=== PATIENT | female | born 1935 | race Caucasian/White ===

== ENCOUNTER 2021-01-27 13:41 | Inpatient (IN) | payer MEDICARE, OTHER ==
[~2021-01-27] VITALS: Ht 162.6 cm; Wt 83.8 kg
--- NOTE | ~2021-01-27 | EKG ---
[facility] [address] [place], [place] [address] Draft EKG completed, results pending confirmation PATIENT NAME: ANYISAMARIANI Electrocardiogram DATE OF : 39 PHYSICIAN: PRELIMINARY REPORT #: [id number] REPORT IS CONFIDENTIAL AND NOT TO BE RELEASED WITHOUT AUTHORIZATION
[~2021-01-27 13:41] MED LIST: ADULT LOW DOSE81 MG PO; K-TAB ER20 MEQ PO; LASIX40 MG PO; LEVOTHYROXINE112 MCG PO; LEVOTHYROXINE125 MCG PO; LIPITOR10 MG PO; LISINOPRIL10 MG PO; LOVENOX80 MG SUB-Q; MAGNESIUM250 M1 PO; METFORMIN HCL500 M3 PO; NIACIN500 MG PO; NORVASC5 MG PO; OMEGA 3 FISH O1 EACH PO; OSTERA TABLET1 EACH PO; POTASSIUM CHLO20 ME1 PO; PROZAC20 MG PO; SUPER B COMPLE1 EACH PO; TOPROL XL50 MG PO; VITAMIN D31000 UNI1 PO
[2021-01-27] MEDS ORDERED: METOPROLOL SUCC50 MG PO (13:58)
[2021-01-27] MEDS ORDERED: RISPERIDONE0.25 MG PO (13:58)
[2021-01-27] MEDS ORDERED: MEMANTINE HCL10 MG PO (16:41)
[2021-01-27] MEDS ORDERED: LEVOTHYROXINE100 MCG PO (16:41)
[2021-01-27] MEDS ORDERED: DONEPEZIL HCL10 MG PO (16:42)
[2021-01-27] MEDS ORDERED: FUROSEMIDE20 MG PO (16:56)
[2021-01-27] MEDS ORDERED: DICLOFENAC SOD100 G1 TOP (17:01)
--- NOTE | 2021-01-27 18:01 | NUR ---
THIS RN IN TO CHECK ON PT, PT SPO2 NOTED TO BE 85%. PT LAYING IN BED 2L O2 NC IN PLACE, PT AWAKE AND ALERT. PT TITRATED UP TO 4L O2 NC, SPO2 NOW AT 90-91%. PT STATED HE FELT COLD AT THIS TIME, TEMPERATURE ASSESSED AND WAS 100.8. VITALS TAKEN AND DR. SHORT NOTIFIED OF CHANGE IN PT'S OXYGEN REQUIREMENTS AND TEMPERATURE. PRN TYLENOL THEN ADMINISTERED. PT NOW RESTING IN BED, IVF INFUSING ORDERED, PT REPORTS NO FURTHER NEEDS AT THIS TIME, CALL LIGHT IN REACH, BED IN LOWEST POSITION, WILL CONTINUE PLAN OF CARE.
--- NOTE | 2021-01-27 18:12 | NUR ---
Medications reconciled using pharmacy records and Dr Emmanuel's current chart notes. Dr Emmanuel's chart notes lists citalopram 40mg as one of her current medications, but it doesn't appear that the prescription has been filled for several months
--- NOTE | 2021-01-27 19:28 | NUR ---
PT ARRIVED TO THE CCU AT 1855 VIA STRETCHER WITH HER BELONGINGS AND DAUGHTER. PT ON ROOM AIR, AND WAS AWAKE AND ALERT. PT BROUGHT DOWN BY BOW MAKER RAJIV. PT ABLE TO SLIDE FROM STRETCHER TO THE BED WITH SOME ASSISTANCE AND WAS REPOSITIONED UP ON THE BED. VITALS TAKEN AT THIS TIME, PT NOTED TO HAVE A HR IN THE 110-140'S. PT DENIES LIGHTHEADEDNESS OR DIZZYNESS AT THIS TIME. PT NOTED TO BE ORIENTED ONLY TO SELF AT THIS TIME. CBG ASSESSED BY JENS CRUZ, SCHEDULED INSULIN HELD PER SLIDING SCALE (SEE MAR). PT IV FLUSHES WELL, SCHEDULED LR NOW INFUSING AT ORDERED RATE (SEE MAR). PT HISTORY TAKEN AT THIS TIME, PT'S DAUGHTER IN ROOM AND HELPED ANSWER QUESTIONS. PT REPORTS NO FURTHER NEEDS AT THIS TIME WHEN ASKED. CALL LIGHT IN REACH, BED IN LOWEST POSITION, PT'S DAUGHTER IN ROOM, IVF INFUSING ORDERED, WILL CONTINUE PLAN OF CARE AND GIVE REPORT TO THE NIGHTSHIFT RN'S.
--- NOTE | 2021-01-27 19:35 | NUR ---
REPORT RECEIVED FROM ALTAGRACIA RN. IN TO CHECK ON PT. DAUGHTER SHIRLEY IS IN ROOM WITH THE PT AND IS GIVING INFO REGARDING PTS BASELINE/ALZHEIMERS AND NIGHTTIME BEHAVIOR. SHIRLEY PLANS TO GO HOME FOR THE NIGHT, QUESTIONS ANSWERED. ASSISTED PT UP TO BSC SHE SAID SHE NEEDED TO USE BATHROOM BUT DID NOT GO. BACK TO BED, STEADY ON FEET, HR UP TO 120'S WHILE UP AND PT BECAME SOB WITH THIS AMOUNT OF ACTIVITY, RECOVERS IN BED APPROX OVER 1 MINUTE. HR STILL 120. ASSESSMENT DONE. LUNGS CLEAR.DIM IN BASES. SPO2 96% ON ROOM AIR. PT ALERT ALTHOUGH SOMEWHAT CONFUSED REGARDING SITUATION. KNOWS SHE IS IN THE HOSPITAL BUT CONFUSED REGARDING IV TUBING, MONITOR CORDS ETC, COOPERATIVE WITH DIRECITONS. CONT TO MONITOR, BED ALARM ON AND CALL LIGHT INSTRUCTION DONE AND IS IN PTS HAND.
--- NOTE | 2021-01-27 22:00 | NUR ---
DR SHORT UPDATED ON HEARTRATE, NO URINE OUTPUT. BLADDER SCAN DONE SHOWS 20ML. 500ML LR BOLUS STARTED. EXTRA DOSE OF METOPROLOL 12.5MG GIVEN. 250MCG DIGOXIN GIVEN. PT HAS BEEN MORE RESTFUL AND NOT SETTING OFF BED ALARM MUCH.
--- NOTE | 2021-01-27 23:45 | NUR ---
PT SET OFF BED ALARM, WAS GETTING OUT OF BED, WHEN ASKED IF SHE WANTED TO TRY TO USE BATHROOM SHE SAID, "YES I COULD PEE". SAT ON BEDSIDE COMMODE, WAS ABLE TO VOID 100ML SURAJ URINE. ASSISTED BACK TO BED WITH BED ALARM IN PLACE. HR REMAINS 115-130'S.
--- NOTE | 2021-01-28 01:00 | NUR ---
DR SHORT UPDATED ON PT STATUS, ORDER GIVEN FOR ADDITIONAL 500ML LR BOLUS. PT AWAKE IN BED, DENIES NEEDS AT THIS TIME.
--- NOTE | 2021-01-28 02:10 | NUR ---
PT STILL AWAKE, FREQUENTLY PUSHING HER CALL LIGHT, SETTING OFF BED ALARM AND PULLING OFF CARDIAC LEADS. HR 120S AFIB. DENIES NEEDS WHEN ASKED. BED ALARM IN PLACE.
--- NOTE | 2021-01-28 03:20 | NUR ---
PT AWAKE IN BED, ASSESSMENT DONE. RESTING HR 120'S AFIB. BED ALARM ON.
--- NOTE | 2021-01-28 05:20 | NUR ---
BED ALARM ALERTED STAFF. PATIENT ASSISTED TO THE BSC. PATIENT WAS ABLE TO VOID. PATIENT WAS INCONTINENT OF URINE. ATTEND CHANGED. PATIENT IS BACK IN BED RESTING. PATIENT DENIES ANY NEEDS. CALL LIGHT AND BELONGINGS ARE WITHIN REACH. BED ALARM ON FOR SAFETY.
--- NOTE | 2021-01-28 06:30 | NUR ---
PT RESTING WITH EYES CLOSED, RESP EVEN AND UNLABORED, HR 110'S. BED ALARM ON.
--- NOTE | 2021-01-28 07:30 | NUR ---
REPORT RECIEVED. PATIENT ISN ASLEEP, NOT DISTRESS NOTED.
--- NOTE | 2021-01-28 08:00 | NUR ---
WOKE FOR ASSESSMENT. REFUSING BREAKFAST, C/O MILD ABD DISCOMFORT. STATES SHE FEELS VERY BLOATED. PATIENT IS VERY FRUSTRATED ABOUT BEING SO CONFUSED. EMOTIONAL SUPPORT GIVEN. DENEIS CHEST PAIN. SON IN ROOM. TALEKED WITH PATIENT ABOUT POC FOR DAY, PATIENT HAS ALZHEIMER'S AND IS VERY FORGETFUL.
--- NOTE | 2021-01-28 10:00 | NUR ---
PULLED OUT IV AND LEADS OFF. ASSISTED PATIENT TO COUCH SHE REMAINS VERY CONFUSED TO SITUATION. TRANSFERRED TO CHAIR. HR-106.
--- NOTE | 2021-01-28 10:00 | NUR ---
SLEEPING, NO DISTRESS NOTED. IVF PATENT.
--- NOTE | 2021-01-28 10:04 | NUR ---
Attempted to speak with pt and she is unable to answer due to dementia. Asked if I can call her daughter and she states this would be best. Pt does not remember where she lives and also cannot remember where she used to work. Called and spoke with Naomi Ocasio. She states pt lives in her home is able to stay alone during the day. Pt has AFib with RVR for sometime and symptoms have been worsening. Family is considering placement to an [facility], but pts house needs to be sold. Family are not quite ready for placement at this time. Daughter denies need for assist as she is a CHW and is aware of what steps need to be taken. Plan is for pt to dc to home when cleared medically.
--- NOTE | 2021-01-28 11:00 | NUR ---
IV REPLACED TO LEFT WRIST. IS COOPERATIVE BUT FRUSTRATED. DR. SHORT HAS BEEN HERE TO SEE PATIENT.
--- NOTE | 2021-01-28 12:00 | NUR ---
REMAINS IN CHAIR, IS CALM. ASSESSMENT DONE, NO CHANGES. LANOXIN 125 MCG IV GIVEN PER ORDERS. DAUGHTER IN ROOM.
--- NOTE | 2021-01-28 13:30 | NUR ---
OUT OF CHAIR TO BR THEN BACK TO BED. TOOK LUNCH WELL.
--- NOTE | 2021-01-28 15:00 | NUR ---
SLEEPING, NO DISTRESS NOTED.
--- NOTE | 2021-01-28 16:00 | NUR ---
ASSESSMENT UNCHANGED. RESTFUL. HR-100. IVF AT 75 ML/HR.
--- NOTE | 2021-01-28 18:00 | NUR ---
TOOK DINNER WELL. TRANSFER ORDERS TO MED-SURG.
--- NOTE | 2021-01-28 18:20 | NUR ---
REPORT TO MED SURG. TO MED SURG VIA BED. TEL#[address] IVF INFUSING.
--- NOTE | 2021-01-28 18:38 | NUR ---
Patient arrived to medical floor from ccu. Patient awake, alert to self. Patient denies pain at this time. Bed alarm placed. Oriented patient to room and call light. Iv fluids infusing per provider order. Vital signs stable.
--- NOTE | 2021-01-28 19:14 | NUR ---
IN ROOM FOR REPORT, PT IS AWAKE IN BED WATCHING TV. CALL LIGHT IS CLOSE AND BED ALARM IS ON. IV IS INFUSING FINE AND PT DENIES NEEDS.
--- NOTE | 2021-01-28 19:48 | NUR ---
PATIENT ASSISTED TO THE RESTROOM A SBA. PATIENT WAS ABLE TO VOID. PATIENT IS BACK IN BED RESTING. BED ALARM ON FOR SAFETY. VITALS TAKEN AND RECORDED. INTAKE AND OUTPUT RECORDED. IV INFUSING PER ORDER. CALL LIGHT AND BELONGINGS ARE WITHIN REACH. WATER REFILLED.
--- NOTE | 2021-01-28 20:10 | NUR ---
IN ROOM TO ADMINISTER MEDICATIONS AND ASSESS PT. PT IS ALERT AND ORIENTED TO SELF AND KNOW SHE'S IN [place]. PT DENIES PAIN AND SOB. PT ALSO DENIES N/T. TELE #[address] AND IN AFIB. IV IS INFUSING FINE AND CALL LIGHT IS CLOSE. BED ALARM IS ON. REMINDED PT TO CALL IF SHE NEEDS ANYTHING AND NOT TO GET UP WITHOUT HELP.
--- NOTE | 2021-01-28 21:34 | NUR ---
BED ALARM SOUNDING, 2ND TIME IN 10 MIN. FIRST TIME PT AMBULATE TO BATHROOM. THIS TIME SHE WAS TRYING TO SHUT THAT THING OFF. AGAIN, EXPLAINED THAT THE BED ALARM SOUNDS WHEN SHE GETS INTO AN UNSAFE POSITION. DENIED NEEDING TO USE THE BATHROOM. COVERED PT UP. ALARM PLACED.
--- NOTE | 2021-01-28 22:15 | NUR ---
CALL LIGHT ALARMING, BED ALARMING. PT STANDING IN HER DOOR WAY, IV POLE NOT WITH HER. BACK TO BED, IV TUBING WAS NO LONGER ATTACHED TO PT. NO BLOOD, PERHAPS PT UNSCREWED IT. FLUSHES WELL. AMBULATED TO BATHROOM. ONCE BACK TO BED, EXAMINED IV. STILL FLUSHES WELL, NO LEAKING AT INSERTION SITE, HOWEVER, HUB WAS LOOSE FROM CATH. CLEANED ARM, REDRESSED. TUCKED PT IN. BED ALARM PLACED. PRIOR TO THIS, @ 2148 THIS RN TOOK PT TO BATHROOM, GAVE WARM BLANKET. BED ALARM WAS PLACED AT THAT TIME.
--- NOTE | 2021-01-28 22:55 | NUR ---
BED ALARM SOUNDED, REDIRECTED PT TO STAY IN BED. PT DENIES NEEDS, CALL LIGHT IS CLOSE AND BED ALARM IS ON.
--- NOTE | 2021-01-28 23:00 | NUR ---
BED ALARM SOUNDED, PT STATES SHE WANTS TO GET UP TO CLOSE THE CURTAIN. PT IS BACK IN BED WITH BED ALARM ON, REMINDED PT TO CALL NOT TRY TO GET OUT OF BED IF SHE NEEDS SOMETHING. PT DENIES FURTHER NEEDS, CALL LIGHT IS CLOSE.
--- NOTE | 2021-01-28 23:05 | NUR ---
BED ALARM SOUNDED, PT DENIES NEEDS AT THIS TIME. REORIENTED TO STAY IN BED AND GET SOME REST. CALL LIGHT IS CLOSE AND BED ALARM IS ON.
--- NOTE | 2021-01-28 23:49 | NUR ---
BED ALARM SOUNDING. SBA TO RESTROOM FOR UNMEASURED VOID AND BM, INCONTINENT IN ATTENDS. ATTENDS CHANGED. pt CONFUSED, ATTEMPTS TO PULL AT IV SITE AND TELE WHILE RN IN ROOM. EDUCATION PROVIDED. BACK IN BED. BED ALARM IN PLACE.
--- NOTE | 2021-01-29 00:35 | NUR ---
BED ALARM SOUNDED, PT STANDING NEXT TO BED. PT STATES SHE NEEDS TO USE RESTROOM, SBA TO RESTROOM ANC BACK TO BED. PT DENIES FURTHER NEEDS, DIRECTED PT TO USE CALL LIGHT NEXT TIME. CALL LIGHT IS CLOSE AND IV IS INFUSING FINE.
--- NOTE | 2021-01-29 02:20 | NUR ---
BED ALARM SOUNDED, CONSTRUCTION EQUIPMENT OPERATOR KORTNEY IN ROOM TO TAKE PT TO RESTROOM. VS ALSO TAKEN AND SHE ADMINISTERED LOPRESSOR. BED ALARM IS BACK ON AND CALL LIGHT IS CLOSE.
--- NOTE | 2021-01-29 03:52 | NUR ---
PT IS RESTING WITH EYES CLOSED, RR IS EVEN AND NONLABORED. CALL LIGHT IS CLOSE AND IV IS INFUSING FINE. BED ALARM IS ON.
--- NOTE | 2021-01-29 05:23 | NUR ---
PT'S BED ALARM SOUNDED, SBA TO RESTROOM AND BACK TO BED. ADMINISTERED THYROID MEDICATION AND VS/I&O'S ENTERED. PT DENIES FURTHER NEEDS AT THIS TIME. CALL LIGHT IS CLOSE AND BED ALARM IS ON.
--- NOTE | 2021-01-29 06:00 | NUR ---
PT BED ALARM SOUNDING. PT UP TO BATHROOM, VOIDED SMALL AMOUNT. BACK TO BED, COVERED, BED ALARM PLACED.
--- NOTE | 2021-01-29 07:16 | NUR ---
REPORT RECEIVED FROM JENS BARRAZA. PT RESTING IN BED ON BACK WITH HEAD OF BED ELEVATED TO 30 DEGREES WITH EYES CLOSED. BED RAILS UP. BED ALARM ON. PT ALLOWED TO REST. CALL LIGHT WITHIN REACH.
--- NOTE | 2021-01-29 07:45 | NUR ---
PATIENT IS SLEEPING IN BED. DID NOT DISTURB AT THIS TIME. CALL LIGHT IN REACH.
--- NOTE | 2021-01-29 09:29 | NUR ---
MORNING ASSESSMENT AND MEDICAITON DUE. PT CONTINUES RESTING WITH EYES CLOSED ON RIGHT SIDE. RESPRATIONS EVEN AND UNALBORED. TELEMETRY MONITORING REMAINS IN AFIB RHYTHEM WITH HERAT RATE 60-80'S WHILE SLEEPING. PT AWAKENS TO VOID AND MOVEMENT IN THE ROOM. HEART RATE REMAINS 60-80'S WHILE AWAKE, AFIB RHYTHEM WITH OCCATIONAL PVC'S. PT DENIES PAIN AND NAUSEA. IV REMAINS WNL, NO S/S OF PHLEBITIS NOTED. PT ORIENTED ONLY TO SELF, FOLLOWING DIRECTIONS, AND THE TOWN SHE IS IN. PT UNABLE TO CLAIRFY WHERE SHE IS OR WHY SHE IS AT THE HOSPITAL. COMPLETELY DISORINETED TO DATE. STRENGTH WNL, STRONG MOVEMENTS NOTED IN ALL EXTREMITIES. PT DECLINES BREAKFAST. REPORTING SHE JUST WANTS TO SLEEP MORE. PT DENIES ADDITIONAL REQUESTS OR COMPLAINTS. CONTINUES RESTING ON RIGHT SIDE, HEAD OF BED ELEVATED TO 3 DEGREES. BED RAILS UP. BED ALARM ON. CALL LIGHT WITHIN REACH.
--- NOTE | 2021-01-29 09:45 | NUR ---
Attempted to see pt, she is sleeping and not awakened.
--- NOTE | 2021-01-29 10:30 | NUR ---
MEDICATION DUE. THIS RN TO ROOM TO CHECK ON PT. PT AWAKE AND GETTING UP OUT OF BED. PT DOES NOT USE CALL LIGHT. PT STATES "WHERE AM I, HOW DID I GET HERE?" PT REORIENTED TO PLACE, TIME AND EVENTS. STAND BY ASSIST UP TO RESTROOM. PT VOIDS CLEAR YELLOW URINE, RENA CARE DONE. DEPENDS CHANGED, DEPENDS NOTED TO BE DRY WITH NO INCONTINANCE SEEN. IV SALINE LOCKED PER MD ORDER, ALOCHOL CAP APPLIED. PT UP TO AMBULATE IN CHU X1 LAP WITH STAND BY ASSIST FROM THIS RN. PT REPORTS MILD DIZZINESS WITH AMBULATION. HEART RATE NOTED TO INCREASE TO 100-110'S WITH AMBULATION. RETURNS TO 70-80'S ONCE BACK TO ROOM. PT UP TO CHAIR AT THIS TIME. CHAIR ALARM PLACED AND ACTIVATED. PT EATING BREAKFAST. PT DENIES PAIN AND NAUSEA. CALL LIGHT EXPLAINED TO PT AND NEAR RIGHT HAND. NO ADDITIONAL REQUESTS OR COMPLAINTS. PT EASILY VEIWED FROM NURSES STATION.
--- NOTE | 2021-01-29 11:02 | NUR ---
PTS DAUGHTER, SHIRLEY, TO BEDSIDE. SHIRLEY UPDATED ON PLAN OF CARE AND PTS STATUS. SHIRLEY VERBALIZES UNDERSTANDING AND STATES HER QUESTIONS HAVE BEEN ANSWERED. PT REMAINS UP TO CHAIR, VISITNG WITH DAUGHTER. PT DENIES REQUESTS OR COMPLAINTS. HEART RATE REMAINS 70-80'S IN AFIB RHYTHEM. NO ADDITIONAL REQEUSTS OR COMLAINTS. CALL LIGHT IN RIGHT HAND. CHAIR ALARM ON.
--- NOTE | 2021-01-29 11:48 | NUR ---
THIS RN TO ROOM TO CHECK ON PT. PT UP TO CHAIR, RESTING WITH EYES CLOSED. RESPIRATIONS EVEN AND UNALBORED. TELEMETRY MONTIROING REMAINS IN AFIB WITH HEART RATE 70-80'S. PT ALLOWED TO REST. CALL LIGHT NEAR RIGHT HAND. CHAIR ALARM ON. PT EASILY VIEWED FROM NURSES STATION.
--- NOTE | 2021-01-29 12:30 | NUR ---
LUNCH ARRIVED, DELIVERED TO PT. PT REMAINS UP TO CHAIR. WHEN ASKED ABOUT PAIN PT REPORTS "YEAH, MY BUTT HURTS JUST A LITTLE." PT ASSISTED WITH REPOSITIONING IN CHAIR AND STATES THIS HELPS. PT EATING LUNCH. PT REORIENTED TO PLACE, EVENTS AND PLAN OF CARE. PT AGREES TO WALK "AFTER LUNCH." NO ADDITOINAL REQUESTS OR COMPLAINTS. CALL LIGHT [employer] REACH. CHAIR ALARM ON.
[2021-01-29] MEDS ORDERED: DIGITEK125 MCG PO (14:04)
[2021-01-29] MEDS ORDERED: RISPERIDONE0.25 MG PO (14:05)
[2021-01-29] MEDS ORDERED: METOPROLOL SUC100 MG PO (14:05)
--- NOTE | 2021-01-29 14:17 | NUR ---
MD TO BEDSIDE FOR ROUNDS. STATES PT IS READY FOR DISCHARGE. MD STATES HE WILL CALL PTS DAUGHTER AND UPDATE HER. PT REMAINS UP TO CHAIR, LOOKING OUT WINDOW. PT REORIENTED TO PLACE, TIME, EVENTS AND PLAN OF CARE. DR. SHORT STATES TO GIVE AFTERNOON DOES OF METOPROLOL PRIOR TO DISCHARGE, MEDICATION GIVEN. HEART RATE REMAINS 70-80'S IN AFIB RHYTHEM ACCORDING TO TELEMETRY MONITORING. PT DENIES ADDITIONAL REQUESTS OR COMPLAINTS. CALL LIGHT WITHIN REACH. CHAIR ALARM ON.
--- NOTE | 2021-01-29 15:58 | NUR ---
CALL TO PATIENT'S DAUGHTER, SHIRLEY, THAT PATIENT WAS READY TO DISCHARGE. SHIRLEY WILL PLAN ON BEING HERE AT APPROX 1630 TO GO OVER D/C PAPERS AND PICKUP PATIENT.
--- NOTE | 2021-01-29 16:29 | NUR ---
THIS RN TO ROOM TO CHECK ON PT. PT ANXIOUS AND WANTING TO GO HOME. PT GETTING UP OUT OF CHAIR. PT REORIENTED TO PLACE AND EVENTS. AWAITING PTS DAUGHTERS ARRIVAL WITH CLOTHES AND TO HEAR DISCHARGE INSTUCTIONS. PT ENCORUAGED TO GO FOR A WALK WITH THIS RN, PT REFUSES STATING "I WILL NOT GO WALKING ARROUND LIKE THIS." PT GIVEN READING MATERIALS AND AGREES TO STAY SITTING IN BED WHILE WAITING FOR HER DAUGHTER. NO ADDITIONAL REQUESTS OR COMPLAINTS. CALL LIGHT WITHIN REACH. CHAIR ALARM ON.
--- NOTE | 2021-01-29 16:43 | NUR ---
PT REMAINS AT HOSPITAL WAITING FOR HER DAUGHTER TO ARRIVE FOR DISCHRAGE. ASSESSMENT DONE. PT DENIES PAIN AND NAUSEA. PT REMAINS ALERT BUT DISORINTED TO ALL BUT SELF AND FOLLOWING DIRECTIONS. PT REORIENTED TO PLACE AND EVENTS AND PLAN OF CARE BUT QUICKLY FORGETS WHAT SHE WAS TOLD. PT HAS DC'D HER OWN TELEMETRY MONITORING, ALLOWED PT TO LEAVE TELE OFF SHE IS READY FOR DISCHRAGE. HEART RATE NOTED TO BE 90'S TO LOW 100'S. CURRENTLY 105. WHILE PT IS RESTING IN CHAIR. PT ABLE TO TELL STORIES ABOUT WHEN SHE WAS YOUNG. NO ADDITIONAL REQUESTS OR COMPLAINTS. CALL LIGHT WITHIN REACH. CHAIR ALARM ON.
--- NOTE | 2021-01-29 17:30 | NUR ---
PT DISCHARGED BY [facility]. SEE NOTE AND DISCHARGE INFORMATION BY [facility].
== END 2021-01-29 17:45 | disposition home or self-care (01) | DRG 309 ==
LOC: ED 13:41 → MS 16:38 → CCU 16:38 → MS 01-28 18:35
PROVIDERS: ADMIT Internal Medicine; ATTEND Internal Medicine
DX: I48.0 Paroxysmal atrial fibrillation (principal); F02.81 Dementia in other diseases classified elsewhere, unspecified severity, with behavioral disturbance; E86.0 Dehydration; Z20.822 Contact with and (suspected) exposure to COVID-19; E78.5 Hyperlipidemia, unspecified; I10 Essential (primary) hypertension; Z85.3 Personal history of malignant neoplasm of breast; Z87.891 Personal history of nicotine dependence; Z90.49 Acquired absence of other specified parts of digestive tract; Z90.710 Acquired absence of both cervix and uterus; Z98.890 Other specified postprocedural states; Z79.899 Other long term (current) drug therapy; E11.9 Type 2 diabetes mellitus without complications; D72.828 Other elevated white blood cell count; G30.1 Alzheimer's disease with late onset
CPT/HCPCS: 71045; 80048; 80053; 80162; 81001; 83735; 83880; 84484; 85025; 93005; 93010; 93306; C9803; J1160; J1650; J7030; J7121; U0003